=== PATIENT | male | born 1990 | race Caucasian/White ===

== ENCOUNTER 2023-05-02 18:56 | Emergency (ER) | payer BC, SELFPAY ==
[2023-05-02 19:02] VITALS: BP 148/79
--- NOTE | 2023-05-02 19:46 | ED.SKININJ ---
HPI-Injury
General
Chief Complaint: Skin Surface Trauma
Source: patient
Exam Limitations: none
Time Seen by Provider: 05/02/23 19:46
Nursing documentation reviewed up to this point in time: agreed with
Travel History
Have you had any contact with someone who has COVID-19?: No
Do you have any symptoms of coronavirus? Fever > 100 degrees, chills, cough, shortness of breath, sore throat, loss of taste or smell, muscle aches, or headache?: No
History of Present Illness-Injury
Initial Injury comments:
32-year-old male with no significant past medical history states he was carrying a toilet out of his house, stumbled and fell cutting the palm of his left hand on a piece of broken ceramic, he also cut the palm of his right hand less deeply. He had
Tdap within past 5 yrs.
Past History
Past History
ED Past Medical History: None
ED Past Surgical History: Orthopedic
Social History
Tobacco: Non-smoker
Personal:
Living: with family
Employment: Employed
Review of Systems
Review of Systems
Allergies reviewed?: Yes
All Other Systems: ROS reviewed and negative except as documented in HPI and ROS
Skin: Reports other (cut both hands, left deeper than right)
Neurological: Denies numbness
Skin Exam
Laceration
left palm:
Length in cm: 1.2
Orientation: diagonal
Type of Laceration: simple
Any active bleeding?: low grade venous oozing
Distal skin color and temperature: normal-warm & good color
Normal distal neurovascular exam: Yes
Range of motion: full
right palm:
Length in cm: 1
Orientation: diagonal
Type of Laceration: simple
Any active bleeding?: no active bleeding
Distal skin color and temperature: normal-warm & good color
Normal distal neurovascular exam: Yes
Range of motion: full
Phy Exam
Physical Exam
Physical Exam:
PHYSICAL EXAMINATION:
General: no apparent distress, not acutely ill
Neuro: alert and oriented.
Psychiatric: well kept. interactive and cooperative
Musculoskeletal: Moves with ease, full ROM of all fingers
Skin: Warm, pink.
Course
Orders/Labs/Results
Orders:
Orders
05/02/23 19:46
Tetanus/Diphth/Acelpertussis [Adacel] 0.5 ml IM .ONCE ONE
Vital Signs
Initial and Last Documented VS:
Initial Vital Signs
Temp Pulse Resp BP Pulse Ox
98.4 F 81 16 148/79 98
05/02/23 19:02 05/02/23 19:02 05/02/23 19:02 05/02/23 19:02 05/02/23 19:02
Last Documented Vital Signs
Temp Pulse Resp BP Pulse Ox
98.4 F 81 16 148/79 98
05/02/23 19:02 05/02/23 19:02 05/02/23 19:02 05/02/23 19:02 05/02/23 19:02
Procedures
Laceration Closure
left palm:
Status of Wound: clean
Size of Wound in cm: 1.2
Description of Wound Edges: sharp
Preparation: cleaned with Betadine (soft betadine scrub)
Anesthesia: 1% Lidocaine
Revision/Debridement: minor revision
Wound exploration: explored to base- no FB
Type of Closure: single layer closure
Skin Closure Material: 4-0 nylon
Number of sutures: 4
Additional information:
ATB ointment and bandaid applied
right palm:
Status of Wound: clean
Size of Wound in cm: 1
Description of Wound Edges: sharp
Preparation: cleaned with Betadine (soft surgiscrub)
Anesthesia: other (no )
Revision/Debridement: routine- no revision
Wound exploration: no tendon involvement
Type of Closure: Dermabond-skin glue
MDM/Problems Addressed
MDM/Problems Addressed:
32-year-old male with no significant past medical history states he was carrying a toilet out of his house, stumbled and fell cutting the palm of his left hand on a piece of broken ceramic, he also cut the palm of his right hand less deeply. He had
Tdap within past 5 yrs.
*Critical Care Note
Total Time (30-74mins, 75-104mins- exclusive of procedures): Not Applicable
ED Attending Note
-
Portions of this chart may have been created with voice recognition software.� Occasional wrong word or��sound alike� substitutions may have occurred due to the inherent limitations of voice recognition software.
Discharge Plan
Departure
Patient Disposition: Home (Routine Discharge)
Date of Disposition: 05/02/23
Time of Disposition: 20:05
Patient with high blood pressure during this ER visit?: No
Condition: Good
Discharge Problem:
Laceration of left hand, Laceration of right hand
Instructions: Laceration Repair With Glue (DC), Laceration Repair With Stitches (DC)
Prescriptions:
No Action
cephalexin 500 mg capsule
500 mg PO QID 3 Days Qty: 12 0RF
Referrals:
José Miguel Miles MD [Family Provider] - As needed
Activity Restrictions/Additional Instructions:
As we discussed, the sutures should be removed in 12 to 14 days. Seek medical care for signs of infection which may include increasing pain, redness, swelling, pus drainage, red streak up the arm or fever.
The glue on the other laceration should slough off within the next 2 weeks.
Interventions
Interventions:
*Risk Screen - Suicide Last Done: 05/02/23 19:02
*General Assessment Last Done: 05/02/23 19:02
*Neglect/Abuse Screening Last Done: 05/02/23 19:02
*ED COVID-19 Vaccine History Last Done: 05/02/23 19:02
*Nursing Disposition Last Done: 05/02/23 20:20
ED-Skin Assessment Last Done: 05/02/23 20:17
Discharge Date and Time
Discharge Date/Time: 05/02/23 20:24
== END 2023-05-02 20:24 | disposition home or self-care (01) ==
LOC: EMR 18:56
PROVIDERS: EMERGENCY PHYSICIAN Student in an Organized Health Care Education/Training Program; FAMILY PHYSICIAN Family Medicine
DX: S61.411A Laceration without foreign body of right hand, initial encounter (principal); S61.412A Laceration without foreign body of left hand, initial encounter; W26.9XXA Contact with unspecified sharp object(s), initial encounter
CPT/HCPCS: 99283; 12001